=== PATIENT | female | born 1940 | race Two or more races ===

== ENCOUNTER 2020-09-17 12:10 | Emergency (ER) | payer OTHER ==
[~2020-09-17] VITALS: Ht 157.5 cm; Wt 61.2 kg
== END 2020-09-17 14:50 | disposition home or self-care (01) ==
LOC: ER 12:10
DX: N39.0 Urinary tract infection, site not specified (principal)

== ENCOUNTER 2021-01-18 11:05 | Emergency (ER) | payer OTHER ==
[~2021-01-18] VITALS: Ht 157.5 cm; Wt 59.0 kg
[2021-01-18] MEDS ORDERED: SYNTHROID112 MCG PO (11:27)
[2021-01-18] MEDS ORDERED: PLAVIX75 MG PO (11:27)
[2021-01-18] MEDS ORDERED: LYRICA100 MG PO (11:27)
[2021-01-18] MEDS ORDERED: GLUMETZA500 MG PO (11:28)
[2021-01-18] MEDS ORDERED: VITAMIN D350 MCG PO (11:28)
[2021-01-18] MEDS ORDERED: PROTONIX40 MG PO (11:28)
== END 2021-01-18 16:14 | disposition home or self-care (01) ==
LOC: ER 11:05
DX: M17.12 Unilateral primary osteoarthritis, left knee (principal); I73.89 Other specified peripheral vascular diseases; I87.2 Venous insufficiency (chronic) (peripheral); I83.893 Varicose veins of bilateral lower extremities with other complications